=== PATIENT | female | born 1955 | race American Indian/Alaskan Native ===

== ENCOUNTER 2019-11-22 18:09 | Emergency (ER) | payer SELFPAY ==
--- NOTE | 2019-11-22 18:15 | Emergency Department Report ---
Blank Doc - Documentation Documentation: 64-year-old female that presents with SOB. This initial assessment/diagnostic orders/clinical plan/treatment(s) is/are subject to change based on patient's health status, clinical progression and re- assessment by fellow clinical providers in the ED. Further treatment and workup at subsequent clinical providers discretion. Patient/guardians urged not to elope from the ED as their condition may be serious if not clinically assessed and managed. Initial orders include: 1- Patient sent to MAIN ED for further evaluation and treatment 2- labs 3- CXR 4- EKG
--- NOTE | 2019-11-22 19:06 | XRay Report ---
CHEST 2 VIEWS INDICATION / CLINICAL INFORMATION: Chest Pain. COMPARISON: 07/20/13 FINDINGS: SUPPORT DEVICES: None. HEART / MEDIASTINUM: No significant abnormality. LUNGS / PLEURA: No significant pulmonary or pleural abnormality. No pneumothorax. ADDITIONAL FINDINGS: No significant additional findings. IMPRESSION: 1. No acute findings. Signer Name: Bishnu Perez MD Signed: 11/22/2019 7:02 PM Workstation Name: [id number]
[2019-11-22 19:58] LABS: Basophils # (Auto) 0.1 K/mm3 (0.0-0.1); Basophils % (Auto) 1.2 % (0.0-1.8); Eosinophils # (Auto) 0.1 K/mm3 (0.0-0.4); Eosinophils % (Auto) 1.6 % (0.0-4.3); Hemoglobin 13.8 gm/dl (10.1-14.3); Lymphocytes # (Auto) 2.4 K/mm3 (1.2-5.4); Lymphocytes % (Auto) 29.5 % (13.4-35.0); Mean Corpuscular HGB Conc 34 % (30-34); Mean Corpuscular Volume 93 fl (79-97); Monocytes # (Auto) 0.4 K/mm3 (0.0-0.8); Platelet Count 231 K/mm3 (140-440); Red Blood Count 4.41 M/mm3 (3.65-5.03); Red Cell Distribution Width 13.8 % (13.2-15.2)
[2019-11-22 20:08] LABS: INR 0.98 (0.87-1.13)
[2019-11-22 20:23] LABS: Alanine Aminotransferase 14 units/L (7-56); BUN/Creatinine Ratio 14; Blood Urea Nitrogen 14 mg/dL (7-17); Calcium 9.5 mg/dL (8.4-10.2); Hemolysis Index 7
[2019-11-22] MEDS ORDERED: cloNIDine 0.2 MG TAB PO ONE (20:50)
[2019-11-22 21:49] VITALS: BP 163/73
[2019-11-22] MEDS ORDERED: ACETAMINOPHEN 325 MG TAB PO ONE (21:50)
[2019-11-22] MEDS ORDERED: ACETAMINOPHEN 325 MG TAB ONE (21:52)
--- NOTE | 2019-11-22 21:52 | Emergency Department Report ---
ED Shortness of Breath HPI - General Chief Complaint: Dyspnea/Respdistress Stated Complaint: SUE ASTHMA ATTACK Time Seen by Provider: 11/22/19 18:15 Source: patient, family Mode of arrival: Ambulatory Limitations: No Limitations - History of Present Illness Initial Comments: 64 yo F w/ hx of HTN, COPD presents to ED w/ complaint of shortness of breath since last night. Daughter states pt has been anxious about having an upcoming appointment to get her remaining lower teeth pulled. Pt states she feels SOB when she gets stressed and when laying down. Feels need to put head out of the window or step outside in order to breathe better. Pt denies chest pain, or dyspnea on exertion. Pt reports she did not take her BP meds today. Admits to tobacco use. MD Complaint: shortness of breath -: Last night Severity: mild Consistency: intermittent Improves With: upright position Worsens With: other (stress, laying down) Known History Of: COPD Context: anxiety Associated Symptoms: denies other symptoms - Related Data Home Oxygen Therapy: No Previous Rx's Medication Instructions Recorded Last Taken Type Pantoprazole [Protonix TAB] 40 mg PO QDAY #30 tablet 07/18/13 07/20/13 08:00 Rx lisinopriL [Zestril TAB] 20 mg PO QDAY #30 07/18/13 07/20/13 08:00 Rx Aspirin EC [Halfprin EC] 81 mg PO QDAY #30 tablet.dr 07/23/13 Unknown Rx Isosorbide Mononitrate [Imdur] 30 mg PO QDAY #30 tab.er.24h 07/23/13 Unknown Rx Metoprolol [Lopressor TAB] 100 mg PO BID #60 tablet 07/23/13 07/20/13 08:00 Rx Pravastatin [Pravachol] 40 mg PO QHS #30 tablet 07/23/13 Unknown Rx traMADoL [Ultram 50 MG tab] 50 mg PO Q8H PRN #30 tablet 07/23/13 Unknown Rx Allergies Allergy/AdvReac Type Severity Reaction Status Date / Time No Known Allergies Allergy Verified 07/20/13 11:48 ED Review of Systems ROS: Stated complaint: SUE ASTHMA ATTACK Other details as noted in HPI Comment: All other systems reviewed and negative Constitutional: denies: chills, fever Respiratory: shortness of breath. denies: cough, SOB with exertion Cardiovascular: denies: chest pain Musculoskeletal: other (denies leg pain or swelling) ED Past Medical Hx - Past Medical History Previous Medical History?: Yes Hx Hypertension: Yes Hx Heart Attack/AMI: Yes Hx Congestive Heart Failure: No Hx Diabetes: No Hx Pulmonary Embolism: No Hx Headaches / Migraines: Yes Hx Asthma: No Hx COPD: No Hx Tuberculosis: No Hx HIV: No Additional medical history: hole beside heart. Ulcers - Surgical History Past Surgical History?: Yes Hx Coronary Stent: No Hx Pacemaker: No Hx Internal Defibrillator: No Hx Cholecystectomy: Yes Additional Surgical History: - Social History Smoking Status: Never Smoker Substance Use Type: None - Medications Home Medications: Home Medications Medication Instructions Recorded Confirmed Last Taken Type Pantoprazole [Protonix TAB] 40 mg PO QDAY #30 tablet 07/18/13 07/20/13 08:00 Rx lisinopriL [Zestril TAB] 20 mg PO QDAY #30 07/18/13 07/20/13 08:00 Rx Aspirin EC [Halfprin EC] 81 mg PO QDAY #30 tablet.dr 07/23/13 Unknown Rx Isosorbide Mononitrate [Imdur] 30 mg PO QDAY #30 tab.er.24h 07/23/13 Unknown Rx Metoprolol [Lopressor TAB] 100 mg PO BID #60 tablet 07/23/13 07/20/13 08:00 Rx Pravastatin [Pravachol] 40 mg PO QHS #30 tablet 07/23/13 Unknown Rx traMADoL [Ultram 50 MG tab] 50 mg PO Q8H PRN #30 tablet 07/23/13 Unknown Rx ED Physical Exam - General Limitations: No Limitations General appearance: alert, in no apparent distress - Head Head exam: Present: atraumatic, normocephalic - Eye Eye exam: Present: normal appearance, EOMI - ENT ENT exam: Present: mucous membranes moist - Neck Neck exam: Present: normal inspection - Respiratory Respiratory exam: Present: normal lung sounds bilaterally. Absent: respiratory distress - Cardiovascular Cardiovascular Exam: Present: regular rate, normal rhythm - GI/Abdominal GI/Abdominal exam: Present: soft. Absent: distended, tenderness - Extremities Exam Extremities exam: Present: normal inspection - Neurological Exam Neurological exam: Present: alert, oriented X3 - Psychiatric Psychiatric exam: Present: normal affect, normal mood - Skin Skin exam: Present: warm, dry, intact, normal color ED Course Vital Signs 11/22/19 11/22/19 11/22/19 18:13 18:15 19:53 Temperature 98.4 F 98.5 F Pulse Rate 73 67 Respiratory 20 21 Rate Blood Pressure 178/85 Blood Pressure 205/102 [Right] O2 Sat by Pulse 100 95 Oximetry 11/22/19 11/22/19 11/22/19 20:55 21:49 21:53 Temperature Pulse Rate 69 72 Respiratory 21 16 Rate Blood Pressure 207/103 Blood Pressure 163/73 [Right] O2 Sat by Pulse 95 Oximetry 11/22/19 22:18 Temperature Pulse Rate Respiratory 19 Rate Blood Pressure Blood Pressure [Right] O2 Sat by Pulse Oximetry ED Medical Decision Making - Lab Data Result diagrams: 11/22/19 19:29 11/22/19 19:29 - EKG Data -: EKG Interpreted by Me EKG shows normal: sinus rhythm, axis, intervals, QRS complexes Rate: normal - EKG Data When compared to previous EKG there are: no significant change (compared to 07/2013) Interpretation: LVH, other (T wave inversions in anterolateral leads) - Radiology Data Radiology results: report reviewed, image reviewed - Medical Decision Making O2 sats normal. Lung exam normal. CXR unremarkable. BNP not elevated. Pt is in no resp distress. Daughter believes it is due to pt's anxiety. Ekg unchanged compared to previous EKG. Troponin normal. Clonidine given for elevated blood pressure. Pt feels comfortable with discharge at this time. PCP follow-up advised. Return precautions given. - Differential Diagnosis pulm edema, pneumonia, COPD Critical care attestation.: If time is entered above; I have spent that time in minutes in the direct care of this critically ill patient, excluding procedure time. ED Disposition Clinical Impression: Dyspnea, Hypertension Disposition: -01 TO HOME OR SELFCARE Is pt being admited?: No Condition: Stable Instructions: Dyspnea (ED), Hypertension (ED), Anxiety (ED) Referrals: PRIMARY CARE, [Primary Care Provider] - 3-5 Days Time of Disposition: 21:52
== END 2019-11-22 22:19 | disposition home or self-care (01) ==
LOC: ED 18:09
DX: R06.00 Dyspnea, unspecified (principal); I10 Essential (primary) hypertension; I25.2 Old myocardial infarction; G43.909 Migraine, unspecified, not intractable, without status migrainosus; Z98.890 Other specified postprocedural states; Z79.899 Other long term (current) drug therapy
CPT/HCPCS: 36415; 71046; 80053; 83880; 84484; 85025; 85610; 85730; 93005; 93010

== ENCOUNTER 2020-03-22 01:15 | Inpatient (IN) | payer MEDICARE, OTHER ==
[2020-03-22] MEDS ORDERED: ASPIRIN 325 MG TAB PO ONE (01:21)
[2020-03-22 01:43] LABS: Basophils # (Auto) 0.1 K/mm3 (0.0-0.1); Basophils % (Auto) 1.1 % (0.0-1.8); Eosinophils # (Auto) 0.1 K/mm3 (0.0-0.4); Eosinophils % (Auto) 1.6 % (0.0-4.3); Hematocrit 43.9 % (30.3-42.9); Hemoglobin 14.5 gm/dl (10.1-14.3); Lymphocytes # (Auto) 2.6 K/mm3 (1.2-5.4); Lymphocytes % (Auto) 33.5 % (13.4-35.0); Mean Corpuscular HGB Conc 33 % (30-34); Mean Corpuscular Volume 92 fl (79-97); Monocytes # (Auto) 0.3 K/mm3 (0.0-0.8); Monocytes % (Auto) 3.9 % (0.0-7.3); Platelet Count 253 K/mm3 (140-440); Red Blood Count 4.76 M/mm3 (3.65-5.03); Red Cell Distribution Width 13.6 % (13.2-15.2)
[2020-03-22 02:04] LABS: BUN/Creatinine Ratio 20; Blood Urea Nitrogen 18 mg/dL (7-17); Calcium 9.6 mg/dL (8.4-10.2); Hemolysis Index 6
--- NOTE | 2020-03-22 02:18 | XRay Report ---
CHEST 1 VIEW INDICATION / CLINICAL INFORMATION: Chest Pain. COMPARISON: 11/22/2019 FINDINGS: SUPPORT DEVICES: None. HEART / MEDIASTINUM: No significant abnormality. LUNGS / PLEURA: No significant pulmonary or pleural abnormality.. No pneumothorax. ADDITIONAL FINDINGS: No significant additional findings. IMPRESSION: 1. No acute findings. Signer Name: Jesus Tirado MD Signed: 03/22/2020 2:13 AM Workstation Name: [id number]
[2020-03-22 02:27] LABS: Chol/HDL Ratio 2.98 %; HDL Cholesterol 64 mg/dL (40-59); LDL Cholesterol,Direct 122 mg/dL (50-130)
--- NOTE | 2020-03-22 03:00 | Emergency Department Report ---
ED Chest Pain HPI - General Chief Complaint: Chest Pain Stated Complaint: SOB/CP Time Seen by Provider: 03/22/20 02:28 Source: patient Mode of arrival: Ambulatory Limitations: No Limitations - History of Present Illness Initial Comments: Chief complaint: Chest pain HPI: This is a 65-year-old female with history of hypertension, coronary artery disease, tobacco abuse, alcohol abuse who presents with chest pain which began suddenly at 11:30 PM. She stated that she just did not feel well today. While she was dozing off to sleep, she had left-sided chest pain radiating to her neck and arm. Also had shortness of breath and nausea. Chest pain is difficult to describe. Chest pain was severe. It has spontaneously resolved while awaiting treatment in the emergency department. She does not currently see a advertising dispatch clerk. SHe is unable to recall the name of her primary care physician. 2013: Left heart cardiac catheterization revealed 50 to 60% mid LAD lesion MD Complaint: chest pain -: Sudden, This evening Onset: during rest Pain Location: left chest Severity: moderate, severe Severity scale (0 -10): 5 Quality: other (Difficulty describe) Consistency: now resolved Improves With: nothing Worsens With: nothing re: nausea, dyspnea - Related Data Previous Rx's Medication Instructions Recorded Last Taken Type Pantoprazole [Protonix TAB] 40 mg PO QDAY #30 tablet 07/18/13 07/20/13 08:00 Rx lisinopriL [Zestril TAB] 20 mg PO QDAY #30 07/18/13 07/20/13 08:00 Rx Aspirin EC [Halfprin EC] 81 mg PO QDAY #30 tablet.dr 07/23/13 Unknown Rx Isosorbide Mononitrate [Imdur] 30 mg PO QDAY #30 tab.er.24h 07/23/13 Unknown Rx Metoprolol [Lopressor TAB] 100 mg PO BID #60 tablet 07/23/13 07/20/13 08:00 Rx Pravastatin [Pravachol] 40 mg PO QHS #30 tablet 07/23/13 Unknown Rx traMADoL [Ultram 50 MG tab] 50 mg PO Q8H PRN #30 tablet 07/23/13 Unknown Rx Allergies Allergy/AdvReac Type Severity Reaction Status Date / Time No Known Allergies Allergy Verified 07/20/13 11:48 Heart Score - HEART Score History: Highly suspicious EKG: Non-specific Age: > 65 Risk factors: 1-2 risk factors Troponin: > 3x normal limit HEART Score: 8 ED Review of Systems ROS: Stated complaint: SOB/CP Other details as noted in HPI Comment: All other systems reviewed and negative Constitutional: denies: fever, malaise Respiratory: shortness of breath. denies: cough Cardiovascular: chest pain Gastrointestinal: nausea ED Past Medical Hx - Past Medical History Previous Medical History?: Yes Hx Hypertension: Yes Hx Heart Attack/AMI: Yes Hx Congestive Heart Failure: No Hx Diabetes: No Hx Pulmonary Embolism: No Hx Headaches / Migraines: Yes Hx Asthma: No Hx COPD: No Hx Tuberculosis: No Hx HIV: No Additional medical history: hole beside heart. Ulcers - Surgical History Past Surgical History?: Yes Hx Coronary Stent: No Hx Pacemaker: No Hx Internal Defibrillator: No Hx Cholecystectomy: Yes Additional Surgical History: - Social History Smoking Status: Current Every Day Smoker Substance Use Type: None - Medications Home Medications: Home Medications Medication Instructions Recorded Confirmed Last Taken Type Pantoprazole [Protonix TAB] 40 mg PO QDAY #30 tablet 07/18/13 07/20/13 08:00 Rx lisinopriL [Zestril TAB] 20 mg PO QDAY #30 07/18/13 07/20/13 08:00 Rx Aspirin EC [Halfprin EC] 81 mg PO QDAY #30 tablet.dr 07/23/13 Unknown Rx Isosorbide Mononitrate [Imdur] 30 mg PO QDAY #30 tab.er.24h 07/23/13 Unknown Rx Metoprolol [Lopressor TAB] 100 mg PO BID #60 tablet 07/23/13 07/20/13 08:00 Rx Pravastatin [Pravachol] 40 mg PO QHS #30 tablet 07/23/13 Unknown Rx traMADoL [Ultram 50 MG tab] 50 mg PO Q8H PRN #30 tablet 07/23/13 Unknown Rx ED Physical Exam - General Limitations: No Limitations General appearance: alert, in no apparent distress - Head Head exam: Present: atraumatic, normocephalic - Eye Eye exam: Present: normal appearance - ENT ENT exam: Present: mucous membranes moist - Neck Neck exam: Present: normal inspection, full ROM - Respiratory Respiratory exam: Present: normal lung sounds bilaterally. Absent: respiratory distress, wheezes, rales, rhonchi - Cardiovascular Cardiovascular Exam: Present: regular rate, normal rhythm, normal heart sounds. Absent: systolic murmur, diastolic murmur, rubs, gallop - GI/Abdominal GI/Abdominal exam: Present: soft, normal bowel sounds. Absent: distended, tenderness, guarding, rebound - Extremities Exam Extremities exam: Present: normal inspection - Neurological Exam Neurological exam: Present: alert, oriented X3 - Psychiatric Psychiatric exam: Present: normal affect, normal mood - Skin Skin exam: Present: warm, dry, intact, normal color. Absent: rash ED Course Vital Signs 03/22/20 02:38 Pulse Rate 75 Respiratory 20 Rate Blood Pressure 151/73 [Left] O2 Sat by Pulse 97 Oximetry ED Medical Decision Making - Lab Data Result diagrams: 03/22/20 01:29 03/22/20 01:29 Laboratory Results - last 24 hr 03/22/20 03/22/20 01:29 01:29 WBC 7.8 RBC 4.76 Hgb 14.5 H Hct 43.9 H MCV 92 MCH 31 MCHC 33 RDW 13.6 Plt Count 253 Lymph % (Auto) 33.5 [place] % (Auto) 3.9 Eos % (Auto) 1.6 Baso % (Auto) 1.1 Lymph # 2.6 [place] # 0.3 Eos # 0.1 Baso # 0.1 Seg Neutrophils % 59.9 Seg Neutrophils # 4.7 Sodium 139 Potassium 4.0 Chloride 102.4 Carbon Dioxide 22 Anion Gap 19 BUN 18 H Creatinine 0.9 Estimated GFR > 60 BUN/Creatinine Ratio 20 Glucose 115 H Calcium 9.6 Troponin T 0.438 H* Triglycerides 111 Cholesterol 191 LDL Cholesterol Direct 122 HDL Cholesterol 64 H Cholesterol/HDL Ratio 2.98 - EKG Data 03/22/20 03:01 EKG obtained 0126 Normal sinus rhythm rate 95 bpm normal axis no ST elevation nonspecific T wave pattern diffuse T wave flattening prolonged QT - Radiology Data Radiology results: report reviewed Chest radiograph: No acute findings - Medical Decision Making Acute coronary syndrome/NSTEMI: Patient is currently chest pain-free. Sliver Machine Operator consulted. Heparin initiated in the emergency department. Admitted to the hospital service. Critical care attestation.: If time is entered above; I have spent that time in minutes in the direct care of this critically ill patient, excluding procedure time. ED Disposition Clinical Impression: Acute coronary syndrome, NSTEMI (non-ST elevated myocardial infarction) Disposition: 09 OP ADMIT IP TO THIS HOSP Is pt being admited?: Yes Condition: Stable
[2020-03-22] MEDS ORDERED: HEPARIN 10,000 UNITS/10 ML VIAL IV ONE (03:06)
[2020-03-22] MEDS ORDERED: ACETAMINOPHEN 325 MG TAB PO PRN (03:18)
[2020-03-22] MEDS ORDERED: ONDANSETRON 4 MG/2 ML INJ IV PRN (03:18)
--- NOTE | 2020-03-22 03:18 | History and Physical Report ---
History of Present Illness History of present illness: 65-year-old woman with a history of hypertension, CAD, peptic ulcer disease comes emergency room for evaluation. Patient stated that he has been having chest pain that started tonight, located in the left chest area which he described as a sharp pain, intermittent every 3 minutes, intensity 5/10, no radiation, cannot identify exacerbating factors, better with pain medication. Admits to shortness of breath, nausea, no diaphoresis or palpitation. States she is compliant with her medication. Patient will be admitted for chest pain evaluation Review Of Systems: Constitutional: no weight loss, fever, chills Ears, eyes, nose, mouth and throat: no nasal congestion, no nasal discharge, no sinus pressure, blurry vision, diplopia Neck: No neck pain or rigidity. Cardiovascular: No palpitations Respiratory: Nocough Gastrointestinal: No hematochezia Genitourinary : no dysuria, frequency Musculoskeletal: no muscle ache , joint pain Integumentary: no rash, no pruritis Neurological: no parathesias, focal weakness Endocrine: no cold or heat intolerance, no polyuria or polydipsia Hematologic/Lymphatic: no easy bruising, no easy bleeding, no gland swelling Allergic/Immunologic: no urticaria, no angioedema. PAST MEDICAL HISTORY: hypertension, coronary artery disease, peptic ulcer disease PAST SURGICAL HISTORY: None SOCIAL HISTORY: Social alcohol, denies tobacco, drugs FAMILY HISTORY: Hypertension Medications and Allergies Allergies Allergy/AdvReac Type Severity Reaction Status Date / Time No Known Allergies Allergy Verified 07/20/13 11:48 Home Medications Medication Instructions Recorded Confirmed Last Taken Type Pantoprazole [Protonix TAB] 40 mg PO QDAY #30 tablet 07/18/13 07/20/13 08:00 Rx lisinopriL [Zestril TAB] 20 mg PO QDAY #30 07/18/13 07/20/13 08:00 Rx Aspirin EC [Halfprin EC] 81 mg PO QDAY #30 tablet.dr 07/23/13 Unknown Rx Isosorbide Mononitrate [Imdur] 30 mg PO QDAY #30 tab.er.24h 07/23/13 Unknown Rx Metoprolol [Lopressor TAB] 100 mg PO BID #60 tablet 07/23/13 07/20/13 08:00 Rx Pravastatin [Pravachol] 40 mg PO QHS #30 tablet 07/23/13 Unknown Rx traMADoL [Ultram 50 MG tab] 50 mg PO Q8H PRN #30 tablet 07/23/13 Unknown Rx Active Meds: Active Medications Heparin Sodium/Sodium Chloride (Heparin/ 0.45% Nacl-25,000 Unit/500 Ml) 25,000 unit in 500 mls @ 20 mls/hr IV TITRATE LUCY; Protocol Exam - Physical Exam Narrative exam: Gen. appearance: Patient lying in bed, no apparent distress HEENT: Normocephalic, atraumatic, pupils equally round and reactive to light, extraocular movement intact, and no sclericterus,. No JVD or thyromegaly or nodule,neck supple, no carotid bruit ,mucous membranes moist, no exudate or erythema Heart: S1, S2, regular rate and rhythm Lungs: Clear bilaterally, breathing comfortable Abdomen: Positive bowel sounds, nontender, nondistended, no organomegaly Extremity: no edema, cyanosis, clubbing Skin: No rash, nodules, warm, dry Neuro: Cranial nerves II to XII intact, speech is fluent, moves extremities, sensory intact - Constitutional Vitals: Temp Pulse Resp BP Pulse Ox 75 20 151/73 97 03/22/20 02:38 03/22/20 02:38 03/22/20 02:38 03/22/20 02:38 HEART Score - HEART Score EKG: Non-specific Age: > 65 Risk factors: 1-2 risk factors Troponin: Troponin T 0.438 ng/mL (0.00-0.029) H* 03/22/20 01:29 Troponin: > 3x normal limit Results - Labs CBC & Chem 7: 03/22/20 03:32 03/22/20 03:32 Labs: Abnormal lab results 03/22/20 03/22/20 Range/Units 01:29 01:29 Hgb 14.5 H (10.1-14.3) gm/dl Hct 43.9 H (30.3-42.9) % BUN 18 H (7-17) mg/dL Glucose 115 H (65-100) mg/dL Troponin T 0.438 H* (0.00-0.029) ng/mL HDL Cholesterol 64 H (40-59) mg/dL - Imaging and Cardiology EKG: image reviewed Chest x-ray: report reviewed Assessment and Plan Assessment Chest pain/cad Check cardiac enzymes, consult cardiology IV morphine, continue heparin drip, start aspirin, beta-terrie, SWETHA inhibitor Hypertension Add IV hydralazine as needed for blood pressure control DVT prophylaxis
[2020-03-22 03:47] LABS: Basophils # (Auto) 0.1 K/mm3 (0.0-0.1); Basophils % (Auto) 1.1 % (0.0-1.8); Eosinophils # (Auto) 0.1 K/mm3 (0.0-0.4); Eosinophils % (Auto) 1.2 % (0.0-4.3); Hematocrit 43.6 % (30.3-42.9); Hemoglobin 14.5 gm/dl (10.1-14.3); Lymphocytes # (Auto) 2.8 K/mm3 (1.2-5.4); Lymphocytes % (Auto) 32.1 % (13.4-35.0); Mean Corpuscular HGB Conc 33 % (30-34); Mean Corpuscular Volume 91 fl (79-97); Monocytes # (Auto) 0.5 K/mm3 (0.0-0.8); Monocytes % (Auto) 5.3 % (0.0-7.3); Platelet Count 243 K/mm3 (140-440); Red Cell Distribution Width 13.5 % (13.2-15.2)
[2020-03-22 03:56] LABS: INR 0.88 (0.87-1.13); Partial Thromboplastin Time 29.7 Sec. (24.2-36.6)
[2020-03-22 04:06] LABS: Creatine Kinase MB 3.1 ng/mL (0.0-4.0)
[2020-03-22 04:07] LABS: BUN/Creatinine Ratio 23; Blood Urea Nitrogen 18 mg/dL (7-17); Calcium 9.5 mg/dL (8.4-10.2); Hemolysis Index 9
[2020-03-22] MEDS: MORPHINE 2 MG/1 ML INJ IV PRN (04:25)
[2020-03-22] MEDS: HEPARIN/ 0.45% NACL DRIP 25,000 UNIT/500 ML BAG IV SCH (04:35)
[2020-03-22] MEDS ORDERED: LISINOPRIL 10 MG TAB ONE (09:25)
[2020-03-22] MEDS ORDERED: ASPIRIN 325 MG TAB ONE (09:25)
[2020-03-22] MEDS ORDERED: METOPROLOL TARTRATE 25 MG TAB ONE (09:25)
[2020-03-22] MEDS: METOPROLOL TARTRATE 25 MG TAB PO SCH ×2 (09:30→23:04)
[2020-03-22] MEDS: ASPIRIN 325 MG TAB PO SCH (09:30)
[2020-03-22] MEDS: LISINOPRIL 10 MG TAB PO SCH (09:30)
[2020-03-22] MEDS ORDERED: hydrALAZINE 20 MG/1 ML INJ IV PRN (10:33)
[2020-03-22] MEDS ORDERED: hydrALAZINE 20 MG/1 ML INJ ONE ×2 (10:45→22:07)
--- NOTE | 2020-03-22 12:21 | Consultation ---
History of Present Illness Consult date: 03/22/20 Requesting physician: JOYCELYN ROBLERO Consult reason: chest pain, elevated troponin History of present illness: The pt is a 65-year-old female with a past medical history of hypertension, nonobstructive CAD, tobacco use, ETOH use, duodenal ulcer. She has been seen by our practice on a prior hospitalization although she admits she has been noncompliant with cardiology follow up. She states that she does regularly see a PCP, does not recall the name of her PCP. She presented with c/o chest pain since yesterday evening around 11:30PM. She was falling asleep when she noted the onset of her pain. She describes her pain as an intermittent left-sided sharp pain and soreness which is currently improved. The pain was associated with some SOB and nausea. She denies any palpitations, vomiting, diaphoresis, dizziness or syncope. LHC done 07/2013 showed nonobstructive CAD (50-60% diffuse mid LAD, left main patent, 30% mid circ mod-severe tortuous vessel, RCA patent and normal, PLV small caliber vessel 80% lesion too small for intervention) normal LV function. Echo done 07/2013 showed normal LV function, mild to mod LVH, impaired relaxation, mild TR and MR. Past History Past Medical History: CAD, hypertension Social history: smoking, alcohol abuse Medications and Allergies Allergies Allergy/AdvReac Type Severity Reaction Status Date / Time No Known Allergies Allergy Verified 07/20/13 11:48 Home Medications Medication Instructions Recorded Confirmed Last Taken Type Pantoprazole [Protonix TAB] 40 mg PO QDAY #30 tablet 07/18/13 07/20/13 08:00 Rx lisinopriL [Zestril TAB] 20 mg PO QDAY #30 07/18/13 07/20/13 08:00 Rx Aspirin EC [Halfprin EC] 81 mg PO QDAY #30 tablet. 07/23/13 Unknown Rx Isosorbide Mononitrate [Imdur] 30 mg PO QDAY #30 tab.er.24h 07/23/13 Unknown Rx Metoprolol [Lopressor TAB] 100 mg PO BID #60 tablet 07/23/13 07/20/13 08:00 Rx Pravastatin [Pravachol] 40 mg PO QHS #30 tablet 07/23/13 Unknown Rx traMADoL [Ultram 50 MG tab] 50 mg PO Q8H PRN #30 tablet 07/23/13 Unknown Rx Active Meds: Active Medications Acetaminophen (Tylenol) 650 mg PO Q4H PRN PRN Reason: Pain MILD(1-3)/Fever >100.5/TAPIA Aspirin (Aspirin) 325 mg PO QDAY [facility] Last Admin: 03/22/20 09:30 Dose: Not Given Documented by: Atorvastatin Calcium (Lipitor) 80 mg PO QHS [facility] Clopidogrel Bisulfate (Plavix) 75 mg PO QDAY [facility] Hydralazine HCl (Apresoline) 10 mg IV Q3HR PRN PRN Reason: Blood Pressure Heparin Sodium/Sodium Chloride (Heparin/ 0.45% Nacl-25,000 Unit/500 Ml) 25,000 unit in 500 mls @ 20 mls/hr IV TITRATE [facility]; Protocol Last Admin: 03/22/20 04:35 Dose: 1,000 units/hr, 20 mls/hr Documented by: Sodium Chloride (Nacl 0.9% 500 Ml) 500 mls @ 50 mls/hr IV DIRECT [facility] Stop: 03/22/20 22:59 Lisinopril (Zestril) 10 mg PO QDAY [facility] Last Admin: 03/22/20 09:30 Dose: 10 mg Documented by: Metoprolol Tartrate (Metoprolol) 25 mg PO BID [facility] Last Admin: 03/22/20 09:30 Dose: 25 mg Documented by: Morphine Sulfate (Morphine) 2 mg IV Q4H PRN PRN Reason: Pain, Moderate (4-6) Last Admin: 03/22/20 04:25 Dose: 2 mg Documented by: Ondansetron HCl (Zofran) 4 mg IV Q8H PRN PRN Reason: Nausea And Vomiting Last Admin: 03/22/20 04:26 Dose: 4 mg Documented by: Sodium Chloride (Sodium Chloride Flush Syringe 10 Ml) 10 ml IV BID [facility] Last Admin: 03/22/20 09:30 Dose: 10 ml Documented by: Sodium Chloride (Sodium Chloride Flush Syringe 10 Ml) 10 ml IV PRN PRN PRN Reason: LINE FLUSH Review of Systems Constitutional: no weight loss, no weight gain, no fever, no chills, no sweats Ears, nose, mouth and throat: no ear pain, no nose pain, no nasal congestion, no nasal discharge, no sinus pressure, no sinus pain Cardiovascular: chest pain, shortness of breath, high blood pressure, no orthopnea, no syncope Respiratory: shortness of breath, no cough, no congestion, no wheezing, no pain on inspiration Gastrointestinal: nausea, no abdominal pain, no vomiting, no diarrhea, no constipation, no change in bowel habits Genitourinary Female: no pelvic pain, no flank pain, no dysuria, no urinary frequency, no urgency Musculoskeletal: no neck stiffness, no neck pain, no shooting arm pain, no arm numbness/tingling, no low back pain, no shooting leg pain, no leg numbness/tingling, no redness of joints Integumentary: no rash, no pruritis, no redness, no sores, no wounds Neurological: no head injury, no paralysis, no weakness, no parathesias, no numbness, no tingling, no seizures, no syncope Psychiatric: no anxiety Endocrine: no cold intolerance, no heat intolerance Hematologic/Lymphatic: no easy bruising, no easy bleeding Allergic/Immunologic: no urticaria Physical Examination Vital Signs Temp Pulse Resp BP Pulse Ox 98.4 F 102 H 18 174/114 100 03/22/20 01:19 03/22/20 01:19 03/22/20 01:19 03/22/20 01:19 03/22/20 01:19 General appearance: no acute distress HEENT: Positive: PERRL, Normocephaly, Mucus Membranes Moist Neck: Positive: neck supple, trachea midline Cardiac: Positive: Reg Rate and Rhythm, S1/S2 Lungs: Positive: Decreased Breath Sounds Neuro: Positive: Grossly Intact Abdomen: Negative: Tender Skin: Negative: Rash Musculoskeletal: No Pain Extremities: Absent: edema Results 03/22/20 03:32 03/22/20 03:32 Cardiac Enzymes 03/22/20 Range/Units 03:32 CK-MB (CK-2) 3.1 (0.0-4.0) ng/mL Coagulation 03/22/20 Range/Units 03:17 PT 12.1 L (12.2-14.9) Sec. INR 0.88 (0.87-1.13) APTT 29.7 (24.2-36.6) Sec. Lipids 03/22/20 Range/Units 01:29 Triglycerides 111 (2-149) mg/dL Cholesterol 191 (50-199) mg/dL HDL Cholesterol 64 H (40-59) mg/dL Cholesterol/HDL Ratio 2.98 % CBC 03/22/20 03/22/20 Range/Units 01:29 03:32 WBC 7.8 8.7 (4.5-11.0) K/mm3 RBC 4.76 4.80 (3.65-5.03) M/mm3 Hgb 14.5 H 14.5 H (10.1-14.3) gm/dl Hct 43.9 H 43.6 H (30.3-42.9) % Plt Count 253 243 (140-440) K/mm3 Lymph # 2.6 2.8 (1.2-5.4) K/mm3 [place] # 0.3 0.5 (0.0-0.8) K/mm3 Eos # 0.1 0.1 (0.0-0.4) K/mm3 Baso # 0.1 0.1 (0.0-0.1) K/mm3 Comprehensive Metabolic Panel 03/22/20 03/22/20 Range/Units 01:29 03:32 Sodium 139 139 (137-145) mmol/L Potassium 4.0 4.0 (3.6-5.0) mmol/L Chloride 102.4 102.3 (98-107) mmol/L Carbon Dioxide 22 24 (22-30) mmol/L BUN 18 H 18 H (7-17) mg/dL Creatinine 0.9 0.8 (0.7-1.2) mg/dL Glucose 115 H 113 H (65-100) mg/dL Calcium 9.6 9.5 (8.4-10.2) mg/dL - Imaging and Cardiology Echo: report reviewed (07/2013 showed normal LV function, mild to mod LVH, impaired relaxation, mild TR and MR. ) Cardiac cath: report reviewed (07/2013 showed nonobstructive CAD (50-60% diffuse mid LAD, left main patent, 30% mid circ mod-severe tortuous vessel, RCA patent and normal, PLV small caliber vessel 80% lesion too small for intervention) normal LV function. ) EKG: report reviewed, image reviewed EKG interpretations - Telemetry EKG Rhythm: Sinus Rhythm - EKG Sinus rhythms and dysrhythmias: sinus rhythm Assessment and Plan Coronary angiography recommended in setting of NSTEMI. Indications, potential risks and benefits of LHC reviewed with pt and she is agreeable to proceed with LHC in AM. NPO after MN. Cont heparin gtt. Initiate ASA 325, plavix, statin, lopressor. Initiate PPI given h/o duodenal ulcer. Obtain echo. Further recs to follow per hospital course. The patient has been seen in conjunction with Dr. Sarah Vanegas who agrees with the assessment and plan of care. - Patient Problems (1) NSTEMI (non-ST elevated myocardial infarction) Current Visit: Yes Status: Acute (2) CAD (coronary artery disease) Current Visit: Yes Status: Chronic (3) Hypertension Current Visit: Yes Status: Chronic (4) Alcohol use Current Visit: Yes Status: Chronic (5) Tobacco use Current Visit: Yes Status: Chronic (6) History of GI bleed Current Visit: Yes Status: Chronic (7) History of duodenal ulcer Current Visit: Yes Status: Chronic
[2020-03-22] MEDS ORDERED: SODIUM CHLORIDE 0.9% 500 ML 500 ML IV SCH (13:00)
[2020-03-22] MEDS ORDERED: CLOPIDOGREL 75 MG TAB ONE (14:30)
[2020-03-22] MEDS ORDERED: PANTOPRAZOLE 40 MG INJ IV ONE (14:30)
[2020-03-22] MEDS: CLOPIDOGREL 75 MG TAB PO SCH (14:33)
[2020-03-22] MEDS: PANTOPRAZOLE 40 MG INJ IV SCH ×2 (14:33→23:04)
[2020-03-22] MEDS ORDERED: LORazepam 2 MG/ML VIAL IV PRN ×3 (20:54→21:03)
[2020-03-22] MEDS ORDERED: LORazepam 2 MG/ML VIAL ONE (21:20)
--- NOTE | 2020-03-23 00:41 | Event Note ---
Date: 03/22/20 Patient seen and evaluated For [facility] tomorrow Cardiology consult appreciated
[2020-03-23] MEDS: HEPARIN/ 0.45% NACL DRIP 25,000 UNIT/500 ML BAG IV SCH (02:11)
[2020-03-23 04:54] LABS: Basophils # (Auto) 0.1 K/mm3 (0.0-0.1); Basophils % (Auto) 0.7 % (0.0-1.8); Eosinophils # (Auto) 0.2 K/mm3 (0.0-0.4); Eosinophils % (Auto) 2.2 % (0.0-4.3); Hemoglobin 14.3 gm/dl (10.1-14.3); Lymphocytes % (Auto) 38.2 % (13.4-35.0); Mean Corpuscular HGB Conc 33 % (30-34); Mean Corpuscular Volume 92 fl (79-97); Monocytes # (Auto) 0.4 K/mm3 (0.0-0.8); Monocytes % (Auto) 5.6 % (0.0-7.3); Platelet Count 250 K/mm3 (140-440); Red Blood Count 4.68 M/mm3 (3.65-5.03); Red Cell Distribution Width 13.5 % (13.2-15.2)
[2020-03-23 05:03] LABS: INR 0.93 (0.87-1.13)
[2020-03-23 05:12] LABS: Alanine Aminotransferase 10 units/L (7-56); Albumin 3.8 g/dL (3.9-5); BUN/Creatinine Ratio 19; Blood Urea Nitrogen 13 mg/dL (7-17); Calcium 8.9 mg/dL (8.4-10.2); Hemolysis Index 21
[2020-03-23] MEDS ORDERED: SODIUM CHLORIDE 0.9% 500 ML 500 ML ONE (07:19)
[2020-03-23] MEDS ORDERED: ASPIRIN 325 MG TAB ONE (07:19)
[2020-03-23] MEDS ORDERED: CLOPIDOGREL 75 MG TAB ONE (07:19)
[2020-03-23] MEDS: ASPIRIN 325 MG TAB PO SCH (07:23)
[2020-03-23] MEDS: CLOPIDOGREL 75 MG TAB PO SCH (07:23)
[2020-03-23] MEDS ORDERED: SODIUM CHLORIDE 0.9% 500 ML 500 ML IV SCH (07:31)
[2020-03-23] MEDS ORDERED: NITROGLYCERIN SYRINGE 3 ML ONE (07:55)
[2020-03-23] MEDS ORDERED: VERAPAMIL 5 MG/2 ML INJ ONE (07:55)
[2020-03-23] MEDS ORDERED: LIDOCAINE (2%) 20 MG/1 ML VIAL 20 ML MDV INFILTRATI ONE (07:55)
[2020-03-23] MEDS ORDERED: HEPARIN 10,000 UNITS/10 ML VIAL ONE (07:55)
[2020-03-23] MEDS ORDERED: HEPARIN/NS 5000 UNIT/500ML 1,000 ML IR ONE (07:55)
[2020-03-23] MEDS ORDERED: MIDAZOLAM 2 MG/2 ML INJ ONE (07:56)
[2020-03-23] MEDS ORDERED: fentaNYL 100 MCG/2 ML INJ ONE (07:56)
[2020-03-23] MEDS ORDERED: hydrALAZINE 20 MG/1 ML INJ ONE (09:54)
--- NOTE | 2020-03-23 10:20 | Cardiac Catherization Report ---
CARDIAC CATHETERIZATION REPORT REFERRING PHYSICIAN: Hospitalist service. INDICATION FOR PROCEDURE: The patient is a pleasant 65-year-old -[place] female who presents with non-ST elevation myocardial infarction, history of coronary artery disease, diabetes, tobacco abuse. She had no further chest pain overnight. She has been loaded with Plavix, aspirin and heparin. She is currently chest pain free. Risks, benefits, alternatives discussed at length prior to obtaining informed consent. PROCEDURE IN DETAIL: The patient was brought to catheterization lab in a postabsorptive state, prepped and draped in sterile fashion. Demetri's test in right hand was normal. A 2 mL of 2% lidocaine used to anesthetize the right wrist. A standard 6-[place] hydrophilic sheath used to cannulate the right radial artery via modified Seldinger technique. All exchanges performed to exchange a J-tip guidewire. A JL3.5 catheter was used to engage the left main. No dampening or ventricularization. Cineangiography performed in all projections. JR4 catheter was used to cross the aortic valve under fluoroscopic guidance. Left ventriculography was performed in 30 GOMEZ and 30 ESTONIAN projections via hand injections, catheter flushed. Manual pullback performed with continuous pressure monitoring. Catheter used to engage the right coronary. No dampening or ventricularization. Cineangiography performed in all projections. Next, catheter removed from the body of wire, sheath removed. Manual pressure used to achieve hemostasis. DATA: Aortic pressure is 170/80, LV pressure is 170, LVEDP of 18 mmHg. Left ventriculography reveals normal systolic performance with estimated ejection fraction of 55-60%. No evidence of aortic stenosis. CORONARY ANATOMY: This is a right dominant system. Right coronary is a tortuous moderate sized vessel, courses AV groove, distally bifurcates into posterior descending and posterolateral branches. There is a 90% mid right coronary and 90% distal right coronary stenosis, KIERRA 3 flow noted. Left main without significant disease, bifurcates left anterior descending and left circumflex. LAD is a moderate sized vessel, courses anterior intergroove, wraps around the apex. Complex diffuse disease of 90-95% in the mid LAD, 99% proximal first diagonal. Left circumflex is noted to have a 90% distal stenosis, KIERRA 3 flow throughout the coronary tree. I directly supervised the administration of moderate sedation from 9:30 a.m. to 10:00 a.m. with fentanyl and Versed. There were no immediate complications identified. CONCLUSIONS: 1. There is severe and diffuse triple vessel coronary artery disease as aforementioned. A 90-95% complex diffuse mid to distal LAD stenosis, 99% proximal first diagonal stenosis, 90% distal left circumflex stenosis, 90% mid and distal right coronary artery stenosis. KIERRA 3 flow throughout the coronary tree. 2. Preserved left ventricular systolic performance, estimated ejection fraction of 55-60%. 3. No evidence of aortic stenosis. 4. Normal LVEDP. At this point, the patient is clinically stable, chest pain free. Continue aspirin and heparin therapy. Radial sheath care per protocol. The patient is clinically stable and chest pain free. Discussed with Dr. Rosario. The patient will be transferred to [facility] for elective coronary bypass surgery. I spent a long time discussing risks, benefits, alternatives and lifestyle changes. Smoke cessation discussed for 5 minutes. She will see us back in the office after bypass surgery. JOB# [id number] SBM/NTS
--- NOTE | 2020-03-23 10:22 | Progress Note ---
Assessment and Plan tte reviewed with no significant abnormalities. S/p LHC this morning which showed multi-vessel CAD. Pt to tx to [place] where Dr. Rosario will accept for possible revascularization. The patient has been seen in conjunction with Dr. Sarah Vanegas who agrees with the assessment and plan of care. - Patient Problems (1) NSTEMI (non-ST elevated myocardial infarction) Current Visit: Yes Status: Acute (2) CAD (coronary artery disease) Current Visit: Yes Status: Chronic (3) Hypertension Current Visit: Yes Status: Chronic (4) Alcohol use Current Visit: Yes Status: Chronic (5) Tobacco use Current Visit: Yes Status: Chronic (6) History of GI bleed Current Visit: Yes Status: Chronic (7) History of duodenal ulcer Current Visit: Yes Status: Chronic Subjective Date of service: 03/23/20 Principal diagnosis: NSTEMI Interval history: pt for [facility], no current complaints. in SR on tele overnight. Objective Last Vital Signs Temp 97.6 F 03/23/20 04:21 Pulse 72 03/23/20 04:21 Resp 20 03/23/20 04:21 BP 147/71 03/23/20 04:21 Pulse Ox 96 03/23/20 04:21 - Physical Examination General: No Apparent Distress HEENT: Positive: PERRL, Normocephaly, Mucus Membranes Moist Neck: Positive: neck supple, trachea midline Cardiac: Positive: Reg Rate and Rhythm, S1/S2 Lungs: Positive: Decreased Breath Sounds Neuro: Positive: Grossly Intact Abdomen: Negative: Tender Skin: Negative: Rash Musculoskeletal: No Pain Extremities: Absent: edema - Labs and Meds Cardiac Enzymes 03/23/20 Range/Units 04:03 AST 16 (5-40) units/L Coagulation 03/23/20 Range/Units 04:03 PT 12.6 (12.2-14.9) Sec. INR 0.93 (0.87-1.13) CBC 03/23/20 Range/Units 04:03 WBC 7.9 (4.5-11.0) K/mm3 RBC 4.68 (3.65-5.03) M/mm3 Hgb 14.3 (10.1-14.3) gm/dl Hct 43.0 H (30.3-42.9) % Plt Count 250 (140-440) K/mm3 Lymph # 3.0 (1.2-5.4) K/mm3 [place] # 0.4 (0.0-0.8) K/mm3 Eos # 0.2 (0.0-0.4) K/mm3 Baso # 0.1 (0.0-0.1) K/mm3 Comprehensive Metabolic Panel 03/23/20 Range/Units 04:03 Sodium 142 (137-145) mmol/L Potassium 3.8 (3.6-5.0) mmol/L Chloride 105.8 (98-107) mmol/L Carbon Dioxide 21 L (22-30) mmol/L BUN 13 (7-17) mg/dL Creatinine 0.7 (0.7-1.2) mg/dL Glucose 98 (65-100) mg/dL Calcium 8.9 (8.4-10.2) mg/dL AST 16 (5-40) units/L ALT 10 (7-56) units/L Alkaline Phosphatase 88 (35-129) units/L Total Protein 7.1 (6.3-8.2) g/dL Albumin 3.8 L (3.9-5) g/dL - Imaging and Cardiology EKG: report reviewed, image reviewed Echo: report reviewed (07/2013 showed normal LV function, mild to mod LVH, impaired relaxation, mild TR and MR. ) Cardiac cath: report reviewed (07/2013 showed nonobstructive CAD (50-60% diffuse mid LAD, left main patent, 30% mid circ mod-severe tortuous vessel, RCA patent and normal, PLV small caliber vessel 80% lesion too small for intervention) normal LV function. ) - Telemetry EKG Rhythm: Sinus Rhythm - EKG Sinus rhythms and dysrhythmias: sinus rhythm
[2020-03-23] MEDS: LISINOPRIL 10 MG TAB PO SCH (10:56)
[2020-03-23] MEDS: PANTOPRAZOLE 40 MG INJ IV SCH (10:57)
[2020-03-23] MEDS: METOPROLOL TARTRATE 25 MG TAB PO SCH (10:57)
--- NOTE | 2020-03-23 15:58 | Progress Note ---
Assessment and Plan - Patient Problems (1) NSTEMI (non-ST elevated myocardial infarction) Current Visit: Yes Status: Acute Plan to address problem: S/p [facility] this morning which showed multi-vessel CAD. Pt to tx to [place] where Dr. Rosario will accept for possible revascularization. (2) CAD (coronary artery disease) Current Visit: Yes Status: Chronic Qualifiers: Coronary Disease-Associated Artery/Lesion type: [place] artery [place] vs. transplanted heart: [place] heart Plan to address problem: Cont ASA and Ismo (3) Hypertension Current Visit: Yes Status: Chronic Qualifiers: Hypertension type: essential hypertension Qualified Code(s): I10 - Essential (primary) hypertension Plan to address problem: Cont antihypertensive (4) EtOH dependence Current Visit: Yes Status: Chronic Qualifiers: Substance use status: uncomplicated Qualified Code(s): F10.20 - Alcohol dependence, uncomplicated Plan to address problem: CIWA protocoll prn (5) PUD (peptic ulcer disease) Current Visit: Yes Status: Chronic Plan to address problem: On Protonix (6) DVT prophylaxis Current Visit: Yes Status: Acute Plan to address problem: On Heparin (7) Discharge planning issues Current Visit: Yes Status: Acute Plan to address problem: On transfer list for CABG Subjective Date of service: 03/23/20 Principal diagnosis: NSTEMI Interval history: S/p C this morning which showed multi-vessel CAD. Pt to tx to [place] where Dr. Rosario will accept for possible revascularization. Otherwise patient doing well. Objective - Constitutional Vitals: Vital Signs - 12hr 03/23/20 03/23/20 03/23/20 03:56 04:21 10:36 Temperature 97.6 F Pulse Rate 75 72 75 Respiratory 20 Rate Blood Pressure 150/93 Blood Pressure 147/71 [Left] O2 Sat by Pulse 96 99 Oximetry 03/23/20 03/23/20 03/23/20 10:56 10:57 11:00 Temperature Pulse Rate 75 75 Respiratory 16 Rate Blood Pressure 150/93 150/93 Blood Pressure [Left] O2 Sat by Pulse 97 Oximetry 03/23/20 11:31 Temperature 98.4 F Pulse Rate 79 Respiratory 18 Rate Blood Pressure 157/76 Blood Pressure [Left] O2 Sat by Pulse 99 Oximetry General appearance: Present: no acute distress, well-nourished - EENT Eyes: PERRL, EOM intact ENT: hearing intact, clear oral mucosa Ears: bilateral: normal - Neck Neck: supple, normal ROM - Respiratory Respiratory effort: normal Respiratory: bilateral: CTA - Breasts Breasts: normal - Cardiovascular Heart rate: 70 Rhythm: regular Heart Sounds: Present: S1 & S2. Absent: gallop, rub Extremities: pulses intact, No edema, normal color, Full ROM - Gastrointestinal General gastrointestinal: Present: soft, non-tender, non-distended, normal bowel sounds - Genitourinary Female genitourinary: normal - Integumentary Integumentary: clear, warm, dry - Musculoskeletal Musculoskeletal: 1, strength equal bilaterally - Neurologic Neurologic: moves all extremities - Psychiatric Psychiatric: memory intact, appropriate mood/affect, intact judgment & insight - Labs CBC & Chem 7: 03/23/20 04:03 03/23/20 04:03 Labs: Abnormal lab results 03/22/20 03/22/20 03/23/20 Range/Units 17:31 18:38 04:03 Hct 43.0 H (30.3-42.9) % Lymph % (Auto) 38.2 H (13.4-35.0) % Heparin Anti-Xa Level 0.22 L (0.3-0.7) U.I./ml Carbon Dioxide (22-30) mmol/L POC Glucose 148 H (70-105) Troponin T (0.00-0.029) ng/mL Albumin (3.9-5) g/dL 03/23/20 03/23/20 Range/Units 04:03 11:07 Hct (30.3-42.9) % Lymph % (Auto) (13.4-35.0) % Heparin Anti-Xa Level (0.3-0.7) U.I./ml Carbon Dioxide 21 L (22-30) mmol/L POC Glucose 113 H (70-105) Troponin T 0.526 H* (0.00-0.029) ng/mL Albumin 3.8 L (3.9-5) g/dL HEART Score - HEART Score EKG: Non-specific Age: > 65 Risk factors: 1-2 risk factors Troponin: Troponin T 0.526 ng/mL (0.00-0.029) H* 03/23/20 04:03 Troponin: > 3x normal limit
[2020-03-23 16:29] VITALS: BP 136/77
[2020-03-23] MEDS: MORPHINE 2 MG/1 ML INJ IV PRN (16:30)
--- NOTE | 2020-03-23 20:28 | Discharge Summary ---
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 Pt to tx to [place] where Dr. Rosario will accept for possible revascularization. Otherwise patient doing well. (2) CAD (coronary artery disease) Current Visit: Yes Status: Chronic Qualifiers: Coronary Disease-Associated Artery/Lesion type: [place] artery [place] vs. transplanted heart: [place] heart Plan to address problem: Cont ASA and Ismo (3) Hypertension Current Visit: Yes Status: Chronic Qualifiers: Hypertension type: essential hypertension Qualified Code(s): I10 - Essential (primary) hypertension Plan to address problem: Cont antihypertensive (4) EtOH dependence Current Visit: Yes Status: Chronic Qualifiers: Substance use status: uncomplicated Qualified Code(s): F10.20 - Alcohol dependence, uncomplicated Plan to address problem: CIWA protocoll prn (5) PUD (peptic ulcer disease) Current Visit: Yes Status: Chronic Plan to address problem: On Protonix (6) DVT prophylaxis Current Visit: Yes Status: Acute Plan to address problem: On Heparin (7) Discharge planning issues Current Visit: Yes Status: Acute Plan to address problem: On transfer list for CABG Disposition: DC- TO HOME OR SELFCARE Time spent for discharge: 35 - Discharge Diagnoses (1) NSTEMI (non-ST elevated myocardial infarction) Status: Acute (2) CAD (coronary artery disease) Status: Chronic Qualifiers: Coronary Disease-Associated Artery/Lesion type: [place] artery [place] vs. transplanted heart: [place] heart (3) Hypertension Status: Chronic Qualifiers: Hypertension type: essential hypertension Qualified Code(s): I10 - Essential (primary) hypertension Comment: Medical non compliance (4) EtOH dependence Status: Chronic Qualifiers: Substance use status: uncomplicated Qualified Code(s): F10.20 - Alcohol dependence, uncomplicated (5) PUD (peptic ulcer disease) Status: Chronic (6) DVT prophylaxis Status: Acute (7) Discharge planning issues Status: Acute Core Measure Documentation - Palliative Care Palliative Care/ Comfort Measures: Not Applicable - Core Measures Any of the following diagnoses?: none Exam - Constitutional Vitals: Temp Pulse Resp BP Pulse Ox 98.9 F 75 16 136/77 98 03/23/20 16:01 03/23/20 16:01 03/23/20 17:00 03/23/20 16:01 03/23/20 16:01 General appearance: Present: no acute distress, well-nourished - EENT Eyes: Present: PERRL ENT: hearing intact, clear oral mucosa - Neck Neck: Present: supple, normal ROM - Respiratory Respiratory effort: normal Respiratory: bilateral: CTA - Cardiovascular Heart Sounds: Present: S1 & S2. Absent: rub, click - Extremities Extremities: no ischemia, pulses symmetrical, No edema Peripheral Pulses: within normal limits - Abdominal General gastrointestinal: Present: soft, non-tender, non-distended, normal bowel sounds Female genitourinary: Present: normal - Rectal Rectal Exam: deferred - Integumentary Integumentary: Present: clear, warm, dry - Musculoskeletal Musculoskeletal: gait normal, strength equal bilaterally - Psychiatric Psychiatric: appropriate mood/affect, intact judgment & insight - Neurologic Neurologic: CNII-XII intact, moves all extremities - Allied Health Allied health notes reviewed: nursing, case management Plan Diet: low fat, low cholesterol, low salt Follow up with: YESSICA MENDOZA MD [Primary Care Provider] - 7 Days ERIKA KEMP MD [Staff Physician] - 7 Days
== END 2020-03-23 21:18 | disposition short-term general hospital (02) | DRG 282 ==
LOC: SUATTDRO 01:15 → ED 01:15 → 4A 03:18
PROVIDERS: ADMIT Internal Medicine; ATTEND Internal Medicine
PROC: 4A023N7 Measurement of Cardiac Sampling and Pressure, Left Heart, Percutaneous Approach (ICD-10-PCS; principal; 2020-03-22)
PROC: B2111ZZ Fluoroscopy of Multiple Coronary Arteries using Low Osmolar Contrast (ICD-10-PCS; 2020-03-22)
PROC: B2151ZZ Fluoroscopy of Left Heart using Low Osmolar Contrast (ICD-10-PCS; 2020-03-22)
DX: I21.4 Non-ST elevation (NSTEMI) myocardial infarction (principal); I10 Essential (primary) hypertension; I24.9 Acute ischemic heart disease, unspecified; I25.10 Atherosclerotic heart disease of native coronary artery without angina pectoris; Y90.9 Presence of alcohol in blood, level not specified; G43.909 Migraine, unspecified, not intractable, without status migrainosus; F10.20 Alcohol dependence, uncomplicated; K27.9 Peptic ulcer, site unspecified, unspecified as acute or chronic, without hemorrhage or perforation; I25.2 Old myocardial infarction; Z90.49 Acquired absence of other specified parts of digestive tract; Z82.49 Family history of ischemic heart disease and other diseases of the circulatory system
CPT/HCPCS: 36415; 71045; 80048; 80053; 80061; 82550; 82553; 82962; 84484; 85025; 85520; 85610; 85730; 87641; 93005; 93306; 93458; G0378; A9270-GY; C1894; C9113; J0360; J1644; J2060; J2250; J2270; J2405; J3010; J7040; Q9967